=== PATIENT | male | born 1950 | race Two or more races ===

== ENCOUNTER 2020-11-13 21:35 | Inpatient (IN) | payer OTHER, MEDICAID ==
[~2020-11-13] VITALS: Ht 154.9 cm; Wt 72.0 kg
[~2020-11-13 21:35] MED LIST: ASPI325T4 PO; ATOR40TA52 PO; CARV6.2551 PO; CHOL20007 PO; CYAN500T25 PO; FAMO-12 PO; SPIR50TA5 PO
[2020-11-13 21:57] LABS: Basophils # (auto) 0.1 10 ^3/uL (0-0.2); Basophils % (auto) 1.2 % (0.0-2.0); Eosinophils # (auto) 0.1 10 ^3/uL (0-0.8); Eosinophils % (auto) 0.9 % (0.0-7.0); Hematocrit 44.8 % (41.0-53.0); Hemoglobin 14.9 g/dL (13.5-17.5); Lymphocytes # (auto) 1.7 10 ^3/uL (0.4-5.4); Lymphocytes % (auto) 15.9 % (10.0-50.0); Mean Corpuscular Hgb Conc. 33.4 g/dL (32.0-36.0); Monocytes # (auto) 0.9 10 ^3/uL (0-1.3); Monocytes % (auto) 8.7 % (0.0-12.0); Neutrophils # (auto) 7.8 10 ^3/uL (1.6-8.6); Neutrophils % (auto) 73.3 % (37.0-80.0); Red Blood Cells 5.33 10^6/uL (4.5-5.90); Red Cell Distribution Width 14.5 % (11.8-14.3); White Blood Cell 10.6 10^3/uL (4.4-10.8)
[2020-11-13 22:20] LABS: Albumin 3.7 g/dL (3.4-5.0); Anion Gap 5 (5-15); Blood Urea Nitrogen 14 mg/dL (7-18); Carbon Dioxide 21 mmol/L (21-32); Chloride 113 mmol/L (98-107); Glucose 149 mg/dL (74-106); Magnesium 2.7 mg/dL (1.6-2.6); Potassium 4.9 mmol/L (3.5-5.1); Sodium 139 mmol/L (136-145)
[2020-11-13 22:26] LABS: Alanine Aminotransferase 43 U/L (16-61); Alkaline Phosphatase 85 U/L (45-117); Aspartate Aminotransferase 29 U/L (15-37); Bilirubin, Total 0.8 mg/dL (0.2-1.0); GFR African American 96 mL/min; GFR Non-African American 79 mL/min; Total Protein 7.7 g/dL (6.4-8.2)
[2020-11-13 22:38] LABS: INR 1.13 (0.9-1.15); Partial Thromboplastin Time 26.8 sec (23.0-31.2)
[2020-11-14] MEDS ORDERED: NITROGLYCERIN 0.2MG/HR TOPICAL PATCH TD ONE (00:30)
[2020-11-14] MEDS ORDERED: ASPirin 81 mg TAB PO ONE (00:30)
[2020-11-14] MEDS ORDERED: DEXTROSE (50%) 50ML SYRG IV PRN (09:30)
[2020-11-14] MEDS ORDERED: hydrALAZINE HCL 20 MG/ML VL IV PRN (09:30)
[2020-11-14] MEDS ORDERED: MORPHINE SULF INJ 2 MG/ML SYRINGE 1ML IV PRN ×2 (09:30)
[2020-11-14] MEDS ORDERED: HYDROcodone-ACET 5/325MG TAB PO PRN (09:30)
[2020-11-14] MEDS ORDERED: ACETAMINOPHEN 500 MG TAB PO PRN (09:30)
[2020-11-14] MEDS ORDERED: NITROGLYCERIN 0.4 MG SL TAB SL PRN (09:30)
[2020-11-14] MEDS ORDERED: ONDANSETRON HCL 4 MG/2 ML VIAL IV PRN (09:30)
[2020-11-14] MEDS ORDERED: FUROSEMIDE 20 MG/2 ML VIAL IV SCH (10:00)
[2020-11-14] MEDS: InsuLIN REG 1unit/0.01ml Soln (100units/ml) SC SCH ×3 (11:09→22:51)
[2020-11-14] MEDS: ACCU-CHEK COMFORT CURVE STRIP VI SCH ×3 (11:10→22:49)
[2020-11-14] MEDS: LISINOPRIL 10 MG TAB PO SCH (11:20)
[2020-11-14] MEDS: ASPirin-EC 81 mg tab PO SCH (11:20)
[2020-11-14] MEDS: CARVEDILOL 3.125 MG TAB PO SCH (11:20)
[2020-11-14] MEDS: SPIRONOLACTONE 25 MG TAB PO SCH (11:21)
[2020-11-14 22:00] VITALS: BP 100/55
[2020-11-14] MEDS: ATORVASTATIN 20 MG TAB PO SCH (22:50)
[2020-11-14] MEDS ORDERED: ATEN-60 PO (23:09)
[2020-11-14] MEDS ORDERED: POTA10TA51 PO (23:09)
[2020-11-14] MEDS ORDERED: CHOL100055 PO (23:09)
[2020-11-14] MEDS ORDERED: FURO1TAB33 PO (23:09)
[2020-11-14] MEDS ORDERED: METF-370 PO (23:09)
[2020-11-15 05:14] VITALS: BP 107/61
[2020-11-15 05:50] LABS: Basophils # (auto) 0.1 10 ^3/uL (0-0.2); Basophils % (auto) 0.5 % (0.0-2.0); Eosinophils # (auto) 0.2 10 ^3/uL (0-0.8); Eosinophils % (auto) 1.5 % (0.0-7.0); Hematocrit 39.6 % (41.0-53.0); Hemoglobin 13.6 g/dL (13.5-17.5); Lymphocytes # (auto) 1.2 10 ^3/uL (0.4-5.4); Lymphocytes % (auto) 12.2 % (10.0-50.0); Mean Corpuscular Hemoglobin 28.6 pg (28.0-32.0); Mean Corpuscular Hgb Conc. 34.4 g/dL (32.0-36.0); Mean Corpuscular Volume 83.1 fL (80.0-100.0); Monocytes # (auto) 0.8 10 ^3/uL (0-1.3); Neutrophils # (auto) 7.9 10 ^3/uL (1.6-8.6); Neutrophils % (auto) 77.8 % (37.0-80.0); Nucleated Red Blood Cells % 0.1 %; Red Blood Cells 4.77 10^6/uL (4.5-5.90); Red Cell Distribution Width 14.3 % (11.8-14.3); White Blood Cell 10.2 10^3/uL (4.4-10.8)
[2020-11-15 06:07] LABS: INR 1.15 (0.9-1.15); Partial Thromboplastin Time 26.4 sec (23.0-31.2)
[2020-11-15 06:11] LABS: BUN/Creatinine Ratio 23.5; Calcium 9.6 mg/dL (8.5-10.1); Potassium 3.6 mmol/L (3.5-5.1)
[2020-11-15] MEDS: ACCU-CHEK COMFORT CURVE STRIP VI SCH ×4 (06:49→21:10)
[2020-11-15] MEDS: InsuLIN REG 1unit/0.01ml Soln (100units/ml) SC SCH ×4 (06:49→21:13)
[2020-11-15 08:00] VITALS: BP 108/65
[2020-11-15 09:00] VITALS: BP 108/65
[2020-11-15] MEDS ORDERED: ADENOSINE 66 MG in GIVE UN-DILUTED 0 ML IV ONE (09:00)
[2020-11-15] MEDS ORDERED: PATIENTS OWN MEDICATION (Spironolactone 1 TAB) PO SCH (10:00)
[2020-11-15] MEDS: CARVEDILOL 3.125 MG TAB PO SCH (10:00)
[2020-11-15] MEDS ORDERED: PATIENTS OWN MEDICATION (Carvedilol 6.25 MG) PO SCH (10:00)
[2020-11-15] MEDS: FUROSEMIDE 20 MG TAB PO SCH (10:07)
[2020-11-15] MEDS: LISINOPRIL 10 MG TAB PO SCH (10:07)
[2020-11-15] MEDS: SPIRONOLACTONE 25 MG TAB PO SCH (10:07)
[2020-11-15] MEDS: ASPirin-EC 81 mg tab PO SCH (10:07)
[2020-11-15 13:00] VITALS: BP 107/70
[2020-11-15 17:01] VITALS: BP 94/59
[2020-11-15] MEDS: ATORVASTATIN 20 MG TAB PO SCH (21:11)
[2020-11-15 21:35] VITALS: BP 103/67
[2020-11-16 04:33] VITALS: BP 109/73
[2020-11-16] MEDS: ACCU-CHEK COMFORT CURVE STRIP VI SCH ×2 (06:49→11:50)
[2020-11-16] MEDS: InsuLIN REG 1unit/0.01ml Soln (100units/ml) SC SCH ×2 (06:49→11:30)
[2020-11-16 08:52] VITALS: BP 102/71
[2020-11-16] MEDS: CARVEDILOL 3.125 MG TAB PO SCH (09:53)
[2020-11-16] MEDS: FUROSEMIDE 20 MG TAB PO SCH (09:53)
[2020-11-16] MEDS: LISINOPRIL 10 MG TAB PO SCH (09:53)
[2020-11-16] MEDS: ASPirin-EC 81 mg tab PO SCH (09:53)
[2020-11-16] MEDS: SPIRONOLACTONE 25 MG TAB PO SCH (09:54)
[2020-11-16 13:00] VITALS: BP 105/67
[2020-11-16 14:53] VITALS: BP 105/67
== END 2020-11-16 16:29 | disposition home or self-care (01) | DRG 293 ==
LOC: ER 21:38 → TELE 11-14 09:28 → TELE-CENTR 11-14 22:25
PROVIDERS: ADMIT Nurse Practitioner Acute Care; ATTEND Internal Medicine
DX: I11.0 Hypertensive heart disease with heart failure (principal); I50.43 Acute on chronic combined systolic (congestive) and diastolic (congestive) heart failure; I25.5 Ischemic cardiomyopathy; E66.9 Obesity, unspecified; E11.9 Type 2 diabetes mellitus without complications; E78.5 Hyperlipidemia, unspecified; I25.2 Old myocardial infarction; Z79.82 Long term (current) use of aspirin; Z95.810 Presence of automatic (implantable) cardiac defibrillator; Z20.822 Contact with and (suspected) exposure to COVID-19
CPT/HCPCS: 36415; 71045; 78452; 80048; 80053; 82962; 83735; 83880; 84443; 84484; 85025; 85610; 85730; 86141; 87426; 93005; 93017; 93306; G0378; J0153; J1815

== ENCOUNTER 2020-12-21 05:54 | Inpatient (IN) | payer OTHER, MEDICAID ==
[~2020-12-21] VITALS: Ht 154.9 cm; Wt 75.1 kg
[~2020-12-21 05:54] MED LIST changes: +ATEN-60 PO; -CARV6.2551 PO; +CHOL100055 PO; -CHOL20007 PO; +FURO1TAB33 PO; +METF-370 PO; +POTA10TA51 PO
[2020-12-21 07:52] LABS: Basophils # (auto) 0.1 10 ^3/uL (0-0.2); Eosinophils # (auto) 0.1 10 ^3/uL (0-0.8); Hematocrit 46.2 % (41.0-53.0); Hemoglobin 15.7 g/dL (13.5-17.5); Lymphocytes # (auto) 1.3 10 ^3/uL (0.4-5.4); Lymphocytes % (auto) 14.1 % (10.0-50.0); Mean Corpuscular Hemoglobin 28.4 pg (28.0-32.0); Mean Corpuscular Volume 83.7 fL (80.0-100.0); Monocytes # (auto) 0.8 10 ^3/uL (0-1.3); Monocytes % (auto) 8.6 % (0.0-12.0); Neutrophils # (auto) 6.9 10 ^3/uL (1.6-8.6); Neutrophils % (auto) 75.3 % (37.0-80.0); Nucleated Red Blood Cells % 0.1 %; Red Blood Cells 5.53 10^6/uL (4.5-5.90); Red Cell Distribution Width 14.3 % (11.8-14.3); White Blood Cell 9.1 10^3/uL (4.4-10.8)
[2020-12-21 08:06] LABS: Albumin 3.8 g/dL (3.4-5.0); Anion Gap 2 (5-15); Blood Urea Nitrogen 18 mg/dL (7-18); Calcium 9.9 mg/dL (8.5-10.1); Carbon Dioxide 24 mmol/L (21-32); Chloride 110 mmol/L (98-107); Glucose 140 mg/dL (74-106); Potassium 5.5 mmol/L (3.5-5.1); Sodium 136 mmol/L (136-145)
[2020-12-21 08:12] LABS: Alanine Aminotransferase 28 U/L (16-61); Alkaline Phosphatase 75 U/L (45-117); Aspartate Aminotransferase 17 U/L (15-37); Bilirubin, Total 0.4 mg/dL (0.2-1.0); GFR African American 87 mL/min; GFR Non-African American 72 mL/min
[2020-12-21] MEDS ORDERED: ALBUTEROL SULF 2.5 MG/0.5ML(0.5%) NEB SOLN NEB ONE (08:30)
[2020-12-21] MEDS ORDERED: SODIUM ZIRCONIUM CYCL 10 GM PAK PO ONE (08:30)
[2020-12-21] MEDS ORDERED: CALCIUM GLUC 1,000mg/50ml-NS 50 ML IV ONE (08:30)
[2020-12-21] MEDS ORDERED: ASPirin 81 mg TAB PO ONE (08:30)
[2020-12-21] MEDS ORDERED: DEXTROSE (50%) 50ML SYRG IV ONE (08:30)
[2020-12-21] MEDS ORDERED: FUROSEMIDE 20 MG/2 ML VIAL IV ONE (08:30)
[2020-12-21] MEDS ORDERED: InsuLIN REG 1unit/0.01ml Soln (100units/ml) IV ONE (08:30)
[2020-12-21] MEDS ORDERED: MORPHINE SULFATE INJECTION 2 MG/ML SYRG IV PRN ×2 (08:45→11:15)
[2020-12-21] MEDS ORDERED: NITROGLYCERIN 0.4 MG SL TAB SL PRN (08:45)
[2020-12-21 08:52] LABS: BUN/Creatinine Ratio 16.7
[2020-12-21] MEDS ORDERED: ACETAMINOPHEN 500 MG TAB PO PRN (11:15)
[2020-12-21] MEDS ORDERED: PROMETHAZINE HCL 25 MG/ML 1ML IV PRN (11:15)
[2020-12-21] MEDS ORDERED: TEMAZEPAM 15 MG CAP PO PRN (11:15)
[2020-12-21] MEDS ORDERED: LACTULOSE 20Gm/30ML SOLN PO PRN (11:15)
[2020-12-21] MEDS ORDERED: DEXTROSE (50%) 50ML SYRG IV PRN (11:15)
[2020-12-21 11:55] LABS: BUN/Creatinine Ratio 18.6; Calcium 9.9 mg/dL (8.5-10.1); Potassium 4.2 mmol/L (3.5-5.1)
[2020-12-21] MEDS: InsuLIN REG 1unit/0.01ml Soln (100units/ml) SC SCH ×3 (12:03→23:01)
[2020-12-21] MEDS: ACCU-CHEK COMFORT CURVE STRIP VI SCH ×3 (12:03→22:58)
[2020-12-21] MEDS: SODIUM CHLOR 0.9% PF (SALINE LOCK) 10ML VIAL/SYR IV SCH ×4 (13:42→22:58)
[2020-12-21 17:46] LABS: Alcohol, Urine < 3.0 mg/dL (0-10); Amphetamine Screen, Urine NEGATIVE (NEGATIVE); Barbiturate Scree,Urine NEGATIVE (NEGATIVE); Benzodiazephine Screen, Urine NEGATIVE (NEGATIVE); Cannabinoid Screen, Urine NEGATIVE (NEGATIVE); Cocaine Screen, Urine NEGATIVE (NEGATIVE); Opiate Scree,Urine NEGATIVE (NEGATIVE); Phencyclidine Screen, Urine NEGATIVE (NEGATIVE)
[2020-12-21 20:09] VITALS: BP 112/72
[2020-12-21 22:00] VITALS: BP 112/72
[2020-12-21] MEDS: CARVEDILOL 3.125 MG TAB PO SCH (22:59)
[2020-12-21] MEDS: ATORVASTATIN 20 MG TAB PO SCH (23:00)
[2020-12-21] MEDS ORDERED: SPIR25TA8 PO (23:28)
[2020-12-21] MEDS ORDERED: LOSA-69 PO (23:28)
[2020-12-21] MEDS ORDERED: FURO40TA4 PO (23:28)
[2020-12-22 03:00] VITALS: BP 112/72
[2020-12-22 05:00] VITALS: BP 104/77
[2020-12-22] MEDS: SODIUM CHLOR 0.9% PF (SALINE LOCK) 10ML VIAL/SYR IV SCH ×6 (06:00→21:57)
[2020-12-22 06:21] LABS: Basophils # (auto) 0.1 10 ^3/uL (0-0.2); Basophils % (auto) 1.1 % (0.0-2.0); Eosinophils # (auto) 0.1 10 ^3/uL (0-0.8); Hematocrit 50.4 % (41.0-53.0); Hemoglobin 16.9 g/dL (13.5-17.5); Lymphocytes # (auto) 1.5 10 ^3/uL (0.4-5.4); Lymphocytes % (auto) 13.7 % (10.0-50.0); Mean Corpuscular Hemoglobin 28.2 pg (28.0-32.0); Mean Corpuscular Hgb Conc. 33.5 g/dL (32.0-36.0); Monocytes # (auto) 0.8 10 ^3/uL (0-1.3); Monocytes % (auto) 7.3 % (0.0-12.0); Neutrophils # (auto) 8.2 10 ^3/uL (1.6-8.6); Neutrophils % (auto) 76.9 % (37.0-80.0); Nucleated Red Blood Cells % 0.2 %; Red Blood Cells 5.99 10^6/uL (4.5-5.90); Red Cell Distribution Width 14.3 % (11.8-14.3); White Blood Cell 10.6 10^3/uL (4.4-10.8)
[2020-12-22] MEDS: ACCU-CHEK COMFORT CURVE STRIP VI SCH ×4 (06:34→21:54)
[2020-12-22 06:40] LABS: Albumin 3.6 g/dL (3.4-5.0); BUN/Creatinine Ratio 17.8; Calcium 10.1 mg/dL (8.5-10.1); Potassium 4.4 mmol/L (3.5-5.1)
[2020-12-22 06:43] LABS: Bilirubin, Total 0.9 mg/dL (0.2-1.0); Total Protein 7.9 g/dL (6.4-8.2)
[2020-12-22] MEDS: InsuLIN REG 1unit/0.01ml Soln (100units/ml) SC SCH ×4 (06:44→21:57)
[2020-12-22 09:00] VITALS: BP 116/83
[2020-12-22] MEDS: FUROSEMIDE 40 MG/4 ML VIAL IV SCH (09:50)
[2020-12-22] MEDS: ASPirin 81 mg TAB PO SCH (09:50)
[2020-12-22] MEDS: ENOXAPARIN SOD 40 MG/0.4 ML SYRINGE SC SCH (09:50)
[2020-12-22] MEDS: CARVEDILOL 3.125 MG TAB PO SCH ×2 (09:50→21:57)
[2020-12-22] MEDS ORDERED: NITROGLYCERIN 0.2MG/HR TOPICAL PATCH TD SCH (10:00)
[2020-12-22 13:00] VITALS: BP 110/80
[2020-12-22 17:08] VITALS: BP 104/73
[2020-12-22] MEDS: traMADol HCL 50 MG TAB PO PRN (20:56)
[2020-12-22] MEDS: ATORVASTATIN 20 MG TAB PO SCH (21:58)
[2020-12-22 22:00] VITALS: BP 122/68
[2020-12-23 05:00] VITALS: BP 115/85
[2020-12-23 05:33] LABS: Magnesium 2.2 mg/dL (1.6-2.6)
[2020-12-23 05:35] LABS: Bilirubin, Total 0.8 mg/dL (0.2-1.0)
[2020-12-23] MEDS: SODIUM CHLOR 0.9% PF (SALINE LOCK) 10ML VIAL/SYR IV SCH ×6 (06:00→22:11)
[2020-12-23] MEDS: ACCU-CHEK COMFORT CURVE STRIP VI SCH ×2 (06:16→11:30)
[2020-12-23] MEDS: InsuLIN REG 1unit/0.01ml Soln (100units/ml) SC SCH ×2 (06:19→11:30)
[2020-12-23 08:30] VITALS: BP 113/76
[2020-12-23] MEDS: LOSARTAN POTASSIUM 25 MG TAB PO SCH (10:30)
[2020-12-23] MEDS: CARVEDILOL 3.125 MG TAB PO SCH ×2 (10:30→22:14)
[2020-12-23] MEDS: ENOXAPARIN SOD 40 MG/0.4 ML SYRINGE SC SCH (12:04)
[2020-12-23] MEDS: ASPirin 81 mg TAB PO SCH (12:04)
[2020-12-23] MEDS: FUROSEMIDE 40 MG/4 ML VIAL IV SCH (12:05)
[2020-12-23 15:30] VITALS: BP 111/70
[2020-12-23] MEDS ORDERED: PANTOPRAZOLE 40 MG TAB PO ONE (17:15)
[2020-12-23 17:20] LABS: Albumin 3.4 g/dL (3.4-5.0); Calcium 10.5 mg/dL (8.5-10.1); Potassium 4.2 mmol/L (3.5-5.1)
[2020-12-23 17:21] LABS: Total Protein 7.5 g/dL (6.4-8.2)
[2020-12-23] MEDS: traMADol HCL 50 MG TAB PO PRN (18:55)
[2020-12-23] MEDS ORDERED: AZITHROMYCIN 250 MG TAB PO ONE (19:45)
[2020-12-23 22:00] VITALS: BP 102/56
[2020-12-23] MEDS: ATORVASTATIN 20 MG TAB PO SCH (22:14)
[2020-12-24 05:00] VITALS: BP 117/75
[2020-12-24] MEDS: SODIUM CHLOR 0.9% PF (SALINE LOCK) 10ML VIAL/SYR IV SCH ×6 (05:17→21:52)
[2020-12-24 06:07] LABS: Basophils # (auto) 0.1 10 ^3/uL (0-0.2); Eosinophils # (auto) 0.2 10 ^3/uL (0-0.8); Eosinophils % (auto) 2.6 % (0.0-7.0); Hematocrit 47.9 % (41.0-53.0); Hemoglobin 15.9 g/dL (13.5-17.5); Lymphocytes # (auto) 1.8 10 ^3/uL (0.4-5.4); Lymphocytes % (auto) 23.3 % (10.0-50.0); Mean Corpuscular Hemoglobin 27.6 pg (28.0-32.0); Mean Corpuscular Hgb Conc. 33.2 g/dL (32.0-36.0); Mean Corpuscular Volume 83.3 fL (80.0-100.0); Monocytes # (auto) 0.8 10 ^3/uL (0-1.3); Monocytes % (auto) 10.4 % (0.0-12.0); Neutrophils # (auto) 4.8 10 ^3/uL (1.6-8.6); Neutrophils % (auto) 62.7 % (37.0-80.0); Nucleated Red Blood Cells % 0.2 %; Red Blood Cells 5.75 10^6/uL (4.5-5.90); White Blood Cell 7.6 10^3/uL (4.4-10.8)
[2020-12-24 09:00] VITALS: BP 110/69
[2020-12-24] MEDS: ASPirin 81 mg TAB PO SCH (09:31)
[2020-12-24] MEDS: PANTOPRAZOLE 40 MG TAB PO SCH (09:33)
[2020-12-24] MEDS: CARVEDILOL 3.125 MG TAB PO SCH ×2 (09:34→21:52)
[2020-12-24] MEDS: LOSARTAN POTASSIUM 25 MG TAB PO SCH (09:45)
[2020-12-24] MEDS: AZITHROMYCIN 250 MG TAB PO SCH (09:46)
[2020-12-24] MEDS: ENOXAPARIN SOD 40 MG/0.4 ML SYRINGE SC SCH (09:48)
[2020-12-24] MEDS: FUROSEMIDE 40 MG/4 ML VIAL IV SCH (09:49)
[2020-12-24 13:00] VITALS: BP 90/65
[2020-12-24 17:00] VITALS: BP 94/59
[2020-12-24] MEDS: traMADol HCL 50 MG TAB PO PRN (20:04)
[2020-12-24] MEDS: ATORVASTATIN 20 MG TAB PO SCH (21:52)
[2020-12-24 22:00] VITALS: BP 109/74
[2020-12-25 05:00] VITALS: BP 91/64
[2020-12-25] MEDS: SODIUM CHLOR 0.9% PF (SALINE LOCK) 10ML VIAL/SYR IV SCH ×2 (05:52→05:53)
[2020-12-25 09:00] VITALS: BP 115/64
[2020-12-25] MEDS: ASPirin 81 mg TAB PO SCH (09:32)
[2020-12-25] MEDS: FUROSEMIDE 40 MG/4 ML VIAL IV SCH (09:32)
[2020-12-25] MEDS: AZITHROMYCIN 250 MG TAB PO SCH (09:33)
[2020-12-25] MEDS: PANTOPRAZOLE 40 MG TAB PO SCH (09:33)
[2020-12-25] MEDS: LOSARTAN POTASSIUM 25 MG TAB PO SCH (09:34)
[2020-12-25] MEDS: ENOXAPARIN SOD 40 MG/0.4 ML SYRINGE SC SCH (09:34)
[2020-12-25] MEDS: CARVEDILOL 3.125 MG TAB PO SCH (09:37)
[2020-12-25 13:00] VITALS: BP 93/62
[2020-12-25 15:10] VITALS: BP 103/71
== END 2020-12-25 16:00 | disposition home or self-care (01) | DRG 293 ==
LOC: ER 05:54 → TELE 08:36 → TELE-WESTW 20:09
PROVIDERS: ADMIT Internal Medicine; ATTEND Internal Medicine Pulmonary Disease
DX: I11.0 Hypertensive heart disease with heart failure (principal); I50.23 Acute on chronic systolic (congestive) heart failure; E87.5 Hyperkalemia; E87.6 Hypokalemia; I25.10 Atherosclerotic heart disease of native coronary artery without angina pectoris; E11.9 Type 2 diabetes mellitus without complications; E66.9 Obesity, unspecified; I25.5 Ischemic cardiomyopathy; Z20.822 Contact with and (suspected) exposure to COVID-19; J32.1 Chronic frontal sinusitis; E78.5 Hyperlipidemia, unspecified; Z68.31 Body mass index [BMI] 31.0-31.9, adult; I25.2 Old myocardial infarction; Z82.49 Family history of ischemic heart disease and other diseases of the circulatory system; Z83.3 Family history of diabetes mellitus; Z95.810 Presence of automatic (implantable) cardiac defibrillator
CPT/HCPCS: 36415; 70220; 71045; 80048; 80053; 80061; 80307; 82550; 82962; 83036; 83735; 83880; 84132; 84443; 84484; 85025; 85379; 85652; 86141; 87081; 87426; 93005; 94640; 96365; 96375; 99291; G0378; J1815

== ENCOUNTER 2021-03-03 00:48 | Inpatient (IN) | payer OTHER, MEDICAID ==
[~2021-03-03] VITALS: Ht 154.9 cm; Wt 74.4 kg
[~2021-03-03 00:48] MED LIST changes: -FURO1TAB33 PO; +FURO40TA4 PO; +LOSA-69 PO; +SPIR25TA8 PO; -SPIR50TA5 PO
[2021-03-03 01:52] LABS: Hematocrit 44.5 % (41.0-53.0); Hemoglobin 15.2 g/dL (13.5-17.5); Mean Corpuscular Hemoglobin 28.7 pg (28.0-32.0); Mean Corpuscular Hgb Conc. 34.1 g/dL (32.0-36.0); Mean Corpuscular Volume 84.3 fL (80.0-100.0); Red Blood Cells 5.27 10^6/uL (4.5-5.90); Red Cell Distribution Width 14.4 % (11.8-14.3); White Blood Cell 9.4 10^3/uL (4.4-10.8)
[2021-03-03 01:57] LABS: Basophils % (manual) 0 (0.0-2.0); Blast Cells 0; Eosinophils % (manual) 0 (0-7); Metamyelocytes % 0; Myelocytes % 0; Promyelocytes % 0; Reactive Lymphocytes 0
[2021-03-03 02:10] LABS: Albumin 3.6 g/dL (3.4-5.0); BUN/Creatinine Ratio 18.3; Calcium 9.6 mg/dL (8.5-10.1); Magnesium 2.4 mg/dL (1.6-2.6); Potassium 3.8 mmol/L (3.5-5.1)
[2021-03-03 02:15] LABS: Bilirubin, Total 0.8 mg/dL (0.2-1.0); Total Protein 7.4 g/dL (6.4-8.2)
[2021-03-03 02:30] LABS: Band Neutrophils % (manual) 2; Lymphocytes % (manual) 12 (10.0-50.0); Monocytes % (manual) 5 (0-12)
[2021-03-03] MEDS ORDERED: ASPirin 325 MG TAB PO ONE (04:30)
[2021-03-03 04:53] LABS: Urine Bacteria NONE SEEN /hpf (None Seen); Urine Blood Negative /uL (Negative); Urine Hyaline Cast MANY /lpf (0 - 2); Urine Mucus FEW (None Seen); Urine WBC 1 /hpf (0 - 3)
[2021-03-03] MEDS ORDERED: DEXTROSE (50%) 50ML SYRG IV PRN (06:30)
[2021-03-03] MEDS ORDERED: TEMAZEPAM 15 MG CAP PO PRN (06:30)
[2021-03-03] MEDS ORDERED: NITROGLYCERIN 0.4 MG SL TAB SL PRN (06:30)
[2021-03-03] MEDS ORDERED: ACETAMINOPHEN 325 MG TAB PO PRN (06:30)
[2021-03-03] MEDS ORDERED: MORPHINE SULFATE INJECTION 2 MG/ML SYRG IV PRN (06:30)
[2021-03-03] MEDS: InsuLIN REG 1unit/0.01ml Soln (100units/ml) SC SCH ×2 (07:49→11:49)
[2021-03-03] MEDS: ACCU-CHEK COMFORT CURVE STRIP VI SCH ×2 (07:49→11:45)
[2021-03-03] MEDS ORDERED: PANTOPRAZOLE 40 MG TAB PO SCH (10:00)
[2021-03-03] MEDS ORDERED: SPIRONOLACTONE 25 MG TAB PO SCH (10:00)
[2021-03-03] MEDS ORDERED: FUROSEMIDE 40 MG TAB PO SCH (10:00)
[2021-03-03] MEDS ORDERED: LOSARTAN POTASSIUM 50 MG TAB PO SCH (10:00)
[2021-03-03] MEDS ORDERED: ATENOLOL 25 MG TAB PO SCH (10:00)
[2021-03-03 13:00] VITALS: BP 107/73
[2021-03-03] MEDS ORDERED: ATORVASTATIN 20 MG TAB PO SCH (22:00)
[2021-03-04] MEDS ORDERED: ASPirin 81 mg TAB PO SCH (10:00)
== END 2021-03-04 14:40 | disposition left against medical advice (07) | DRG 291 ==
LOC: ER 00:48 → TELE 06:25
PROVIDERS: ADMIT Nurse Practitioner; ATTEND Nurse Practitioner
DX: I11.0 Hypertensive heart disease with heart failure (principal); I50.23 Acute on chronic systolic (congestive) heart failure; E11.9 Type 2 diabetes mellitus without complications; I20.0 Unstable angina; Z20.822 Contact with and (suspected) exposure to COVID-19; R53.83 Other fatigue; R74.01 Elevation of levels of liver transaminase levels; I25.2 Old myocardial infarction; Z95.0 Presence of cardiac pacemaker; Z91.19 Patient's noncompliance with other medical treatment and regimen
CPT/HCPCS: 36415; 71045; 80053; 81001; 82962; 83735; 83880; 84484; 85007; 85027; 87426; 93005; 96372; G0378

== ENCOUNTER 2021-05-29 18:47 | Emergency (ER) | payer OTHER, MEDICAID ==
[~2021-05-29] VITALS: Ht 149.9 cm; Wt 68.0 kg
[2021-05-29 20:18] LABS: Basophils # (auto) 0.1 10 ^3/uL (0-0.2); Basophils % (auto) 0.8 % (0.0-2.0); Eosinophils # (auto) 0.1 10 ^3/uL (0-0.8); Eosinophils % (auto) 0.6 % (0.0-7.0); Hematocrit 43.6 % (41.0-53.0); Hemoglobin 14.5 g/dL (13.5-17.5); Lymphocytes # (auto) 1.4 10 ^3/uL (0.4-5.4); Lymphocytes % (auto) 15.2 % (10.0-50.0); Mean Corpuscular Hemoglobin 28.9 pg (28.0-32.0); Mean Corpuscular Hgb Conc. 33.1 g/dL (32.0-36.0); Mean Corpuscular Volume 87.1 fL (80.0-100.0); Monocytes # (auto) 0.8 10 ^3/uL (0-1.3); Monocytes % (auto) 8.3 % (0.0-12.0); Neutrophils % (auto) 75.1 % (37.0-80.0); Red Blood Cells 5.01 10^6/uL (4.5-5.90); Red Cell Distribution Width 13.4 % (11.8-14.3); White Blood Cell 9.4 10^3/uL (4.4-10.8)
[2021-05-29 20:27] LABS: Calcium 9.6 mg/dL (8.5-10.1); Potassium 3.8 mmol/L (3.5-5.1)
[2021-05-29 20:43] LABS: BUN/Creatinine Ratio 10.2; Bilirubin, Total 0.9 mg/dL (0.2-1.0); Total Protein 7.6 g/dL (6.4-8.2)
[2021-05-29 21:59] VITALS: BP 113/72
== END 2021-05-29 22:15 | disposition home or self-care (01) ==
LOC: ER 18:47
DX: I11.0 Hypertensive heart disease with heart failure (principal); I50.9 Heart failure, unspecified; I25.2 Old myocardial infarction; E11.9 Type 2 diabetes mellitus without complications; E78.5 Hyperlipidemia, unspecified; Z95.0 Presence of cardiac pacemaker; Z79.82 Long term (current) use of aspirin; Z79.899 Other long term (current) drug therapy
CPT/HCPCS: 36415; 80053; 83880; 84484; 85025; 93005

== ENCOUNTER 2021-07-08 17:35 | Emergency (ER) | payer OTHER, MEDICAID ==
[~2021-07-08] VITALS: Ht 175.3 cm; Wt 77.1 kg
[2021-07-08 19:18] LABS: Basophils # (auto) 0.1 10 ^3/uL (0-0.2); Eosinophils # (auto) 0.2 10 ^3/uL (0-0.8); Eosinophils % (auto) 2.4 % (0.0-7.0); Hematocrit 42.7 % (41.0-53.0); Hemoglobin 14.7 g/dL (13.5-17.5); Lymphocytes # (auto) 1.4 10 ^3/uL (0.4-5.4); Lymphocytes % (auto) 14.9 % (10.0-50.0); Mean Corpuscular Hemoglobin 28.9 pg (28.0-32.0); Mean Corpuscular Hgb Conc. 34.5 g/dL (32.0-36.0); Monocytes # (auto) 0.9 10 ^3/uL (0-1.3); Monocytes % (auto) 9.2 % (0.0-12.0); Neutrophils # (auto) 6.8 10 ^3/uL (1.6-8.6); Neutrophils % (auto) 72.5 % (37.0-80.0); Nucleated Red Blood Cells % 0.2 %; Red Blood Cells 5.08 10^6/uL (4.5-5.90); Red Cell Distribution Width 13.2 % (11.8-14.3); White Blood Cell 9.4 10^3/uL (4.4-10.8)
[2021-07-08 19:40] LABS: Albumin 4.2 g/dL (3.4-5.0); Calcium 10.7 mg/dL (8.5-10.1); Potassium 4.4 mmol/L (3.5-5.1)
[2021-07-08 20:00] LABS: BUN/Creatinine Ratio 18.6; Bilirubin, Total 0.5 mg/dL (0.2-1.0); Total Protein 7.9 g/dL (6.4-8.2)
[2021-07-08 22:57] VITALS: BP 105/71
== END 2021-07-08 22:55 | disposition home or self-care (01) ==
LOC: ER 17:35 → EDBD 17:35 → ER 22:55
DX: R07.89 Other chest pain (principal); I11.0 Hypertensive heart disease with heart failure; I50.9 Heart failure, unspecified; E11.9 Type 2 diabetes mellitus without complications; K21.9 Gastro-esophageal reflux disease without esophagitis; E78.5 Hyperlipidemia, unspecified
CPT/HCPCS: 36415; 80053; 83880; 84484; 85025; 93005

== ENCOUNTER 2022-01-11 18:32 | Inpatient (IN) | payer OTHER, MEDICAID ==
[~2022-01-11] VITALS: Ht 162.6 cm; Wt 76.3 kg
[2022-01-11 20:31] LABS: Basophils # (auto) 0.2 10 ^3/uL (0-0.2); Basophils % (auto) 3.2 % (0.0-2.0); Eosinophils # (auto) 0.4 10 ^3/uL (0-0.8); Eosinophils % (auto) 5.6 % (0.0-7.0); Hematocrit 45.6 % (41.0-53.0); Hemoglobin 15.2 g/dL (13.5-17.5); Lymphocytes # (auto) 1.3 10 ^3/uL (0.4-5.4); Lymphocytes % (auto) 19.1 % (10.0-50.0); Mean Corpuscular Hgb Conc. 33.4 g/dL (32.0-36.0); Mean Corpuscular Volume 83.8 fL (80.0-100.0); Monocytes # (auto) 0.5 10 ^3/uL (0-1.3); Monocytes % (auto) 7.3 % (0.0-12.0); Neutrophils # (auto) 4.5 10 ^3/uL (1.6-8.6); Neutrophils % (auto) 64.8 % (37.0-80.0); Nucleated Red Blood Cells % 0.3 %; Red Blood Cells 5.44 10^6/uL (4.5-5.90); Red Cell Distribution Width 13.7 % (11.8-14.3)
[2022-01-11 20:33] LABS: Albumin 3.9 g/dL (3.4-5.0); Calcium 9.4 mg/dL (8.5-10.1); Potassium 4.3 mmol/L (3.5-5.1)
[2022-01-11 20:36] LABS: BUN/Creatinine Ratio 12.7; Bilirubin, Total 0.6 mg/dL (0.2-1.0); Total Protein 7.4 g/dL (6.4-8.2)
[2022-01-11] MEDS ORDERED: ACETAMINOPHEN 325 MG TAB PO PRN (22:30)
[2022-01-11] MEDS ORDERED: HYDROcodone-ACET 5/325MG TAB PO PRN (22:30)
[2022-01-11] MEDS ORDERED: ONDANSETRON HCL 4 MG/2 ML VIAL IV PRN (22:30)
[2022-01-11] MEDS ORDERED: DOCUSATE SOD 100 MG CAP PO PRN (22:30)
[2022-01-11] MEDS ORDERED: DEXTROSE (50%) 50ML SYRG IV PRN (22:30)
[2022-01-11] MEDS ORDERED: MORPHINE SULFATE INJ 2 MG/ml SYRG IV PRN (23:00)
[2022-01-11] MEDS ORDERED: NITROGLYCERIN 0.4 MG SL TAB SL PRN (23:00)
[2022-01-12 02:20] LABS: Basophils # (auto) 0.1 10 ^3/uL (0-0.2); Basophils % (auto) 0.9 % (0.0-2.0); Eosinophils # (auto) 0.4 10 ^3/uL (0-0.8); Eosinophils % (auto) 5.6 % (0.0-7.0); Hematocrit 42.4 % (41.0-53.0); Hemoglobin 14.5 g/dL (13.5-17.5); Lymphocytes # (auto) 1.7 10 ^3/uL (0.4-5.4); Lymphocytes % (auto) 24.5 % (10.0-50.0); Mean Corpuscular Hemoglobin 28.4 pg (28.0-32.0); Mean Corpuscular Hgb Conc. 34.1 g/dL (32.0-36.0); Mean Corpuscular Volume 83.1 fL (80.0-100.0); Monocytes # (auto) 0.5 10 ^3/uL (0-1.3); Monocytes % (auto) 7.2 % (0.0-12.0); Neutrophils # (auto) 4.4 10 ^3/uL (1.6-8.6); Neutrophils % (auto) 61.8 % (37.0-80.0); Nucleated Red Blood Cells % 0.1 %; Red Blood Cells 5.11 10^6/uL (4.5-5.90); Red Cell Distribution Width 13.8 % (11.8-14.3); White Blood Cell 7.1 10^3/uL (4.4-10.8)
[2022-01-12 03:11] LABS: Albumin 3.7 g/dL (3.4-5.0); BUN/Creatinine Ratio 13.9; Calcium 9.5 mg/dL (8.5-10.1)
[2022-01-12 03:15] LABS: Bilirubin, Total 0.8 mg/dL (0.2-1.0); Total Protein 6.8 g/dL (6.4-8.2)
[2022-01-12] MEDS: SODIUM CHLOR 0.9% PF (SALINE LOCK) 10ML VIAL/SYR IV SCH ×3 (05:28→22:11)
[2022-01-12] MEDS: ACCU-CHEK COMFORT CURVE STRIP VI SCH ×4 (05:59→20:59)
[2022-01-12] MEDS: InsuLIN REG 1unit/0.01ml Soln (100units/ml) SC SCH ×3 (07:00→17:00)
[2022-01-12] MEDS ORDERED: FUROSEMIDE 20 MG/2 ML VIAL IV SCH (10:00)
[2022-01-12] MEDS: ASPirin 81 mg TAB PO SCH (10:41)
[2022-01-12 11:13] LABS: Urine Bacteria NONE SEEN /hpf (None Seen); Urine Blood Negative /uL (Negative); Urine Budding Yeast MANY /hpf (None Seen); Urine Specific Gravity 1.013 (1.001-1.035); Urine WBC 8 /hpf (0 - 3); Urine WBC Clumps PRESENT /hpf (None Seen)
[2022-01-12 15:27] VITALS: BP 120/63
[2022-01-12] MEDS ORDERED: ASPI81TA10 PO (15:29)
[2022-01-12] MEDS ORDERED: CLOP75TA70 PO (15:29)
[2022-01-12] MEDS ORDERED: CARV3.1240 PO (15:29)
[2022-01-12 15:42] VITALS: BP 120/63
[2022-01-12 15:46] VITALS: BP 109/73
[2022-01-12 16:54] VITALS: BP 110/63
[2022-01-12] MEDS: SUCRALFATE 1 GM/10 ML ORAL SUSP PO SCH (17:52)
[2022-01-12] MEDS: PANTOPRAZOLE 40 MG/10 ML VIAL INJ IV SCH (21:15)
[2022-01-12 22:00] VITALS: BP 98/68
[2022-01-12] MEDS ORDERED: InsuLIN REG 1unit/0.01ml Soln (100units/ml) SC SCH (22:00)
[2022-01-12] MEDS ORDERED: ATORVASTATIN 20 MG TAB PO SCH ×2 (22:00)
[2022-01-13 05:00] VITALS: BP 99/64
[2022-01-13] MEDS: SODIUM CHLOR 0.9% PF (SALINE LOCK) 10ML VIAL/SYR IV SCH (06:08)
[2022-01-13] MEDS: SUCRALFATE 1 GM/10 ML ORAL SUSP PO SCH ×2 (06:08→11:47)
[2022-01-13] MEDS: InsuLIN REG 1unit/0.01ml Soln (100units/ml) SC SCH ×2 (06:08→11:30)
[2022-01-13] MEDS: ACCU-CHEK COMFORT CURVE STRIP VI SCH ×2 (06:08→11:47)
[2022-01-13 08:32] VITALS: BP 111/70
[2022-01-13] MEDS: ASPirin 81 mg TAB PO SCH (08:51)
[2022-01-13] MEDS: PANTOPRAZOLE 40 MG/10 ML VIAL INJ IV SCH (08:51)
[2022-01-13] MEDS ORDERED: FUROSEMIDE 40 MG TAB PO SCH (10:00)
[2022-01-13] MEDS ORDERED: POTASSIUM CHL 10 Meq TABLET PO SCH (10:00)
[2022-01-13] MEDS ORDERED: LOSARTAN POTASSIUM 50 MG TAB PO SCH (10:00)
[2022-01-13] MEDS ORDERED: metFORMIN HYDROCHLORIDE 500 MG TAB PO SCH (10:00)
[2022-01-13] MEDS ORDERED: CHOLECALCIFEROL (VITD3) 1,000UNIT=25mCg TAB PO SCH (10:00)
[2022-01-13] MEDS ORDERED: CLOPIDOGREL BISULFATE 75 MG TAB PO SCH (10:00)
[2022-01-13] MEDS ORDERED: PANT40TA2 PO (12:49)
[2022-01-13] MEDS ORDERED: SUCR1SUS10 PO (12:49)
[2022-01-13 13:17] VITALS: BP 107/74
[2022-01-13 14:18] VITALS: BP 111/70
[2022-01-13] MEDS ORDERED: SUCR1TAB PO (16:12)
== END 2022-01-13 15:04 | disposition home or self-care (01) | DRG 392 ==
LOC: EDBD 18:32 → EDUNIT# 18:32 → ER 18:35 → TELE 22:51 → TELE-WESTW 01-12 14:02
PROVIDERS: ADMIT Nurse Practitioner Family; ATTEND Nurse Practitioner Family
DX: K21.9 Gastro-esophageal reflux disease without esophagitis (principal); I42.0 Dilated cardiomyopathy; I20.9 Angina pectoris, unspecified; E11.9 Type 2 diabetes mellitus without complications; E78.5 Hyperlipidemia, unspecified; I11.0 Hypertensive heart disease with heart failure; I50.84 End stage heart failure; Z20.822 Contact with and (suspected) exposure to COVID-19; I25.2 Old myocardial infarction
CPT/HCPCS: 36415; 71045; 80053; 81001; 82962; 83036; 83880; 84484; 85025; 93005; 93306; 96374; C9113; G0378

== ENCOUNTER 2022-12-24 04:39 | Emergency (ER) | payer OTHER, MEDICAID ==
[~2022-12-24] VITALS: Ht 167.6 cm; Wt 77.1 kg
[~2022-12-24 04:39] MED LIST changes: -ASPI325T4 PO; +ASPI81TA10 PO; -ATEN-60 PO; +CARV3.1240 PO; +CLOP75TA70 PO; -FAMO-12 PO; -LOSA-69 PO; +LOSA50TA46 PO; +PANT40TA2 PO; +SUCR1TAB PO
[2022-12-24 05:35] LABS: Basophils # (auto) 0.1 10 ^3/uL (0-0.2); Eosinophils # (auto) 0.5 10 ^3/uL (0-0.8); Eosinophils % (auto) 4.2 % (0.0-7.0); Hematocrit 45.3 % (41.0-53.0); Hemoglobin 14.8 g/dL (13.5-17.5); Lymphocytes # (auto) 1.4 10 ^3/uL (0.4-5.4); Lymphocytes % (auto) 12.1 % (10.0-50.0); Mean Corpuscular Hemoglobin 27.9 pg (28.0-32.0); Mean Corpuscular Hgb Conc. 32.7 g/dL (32.0-36.0); Mean Corpuscular Volume 85.3 fL (80.0-100.0); Monocytes % (auto) 8.8 % (0.0-12.0); Neutrophils # (auto) 8.6 10 ^3/uL (1.6-8.6); Neutrophils % (auto) 73.9 % (37.0-80.0); Nucleated Red Blood Cells % 0.1 %; Red Blood Cells 5.31 10^6/uL (4.5-5.90); Red Cell Distribution Width 13.3 % (11.8-14.3); White Blood Cell 11.6 10^3/uL (4.4-10.8)
[2022-12-24 05:58] LABS: Alanine Aminotransferase 11 U/L (7-40); Albumin 4.5 g/dL (3.2-4.8); Alkaline Phosphatase 82 U/L (46-116); Anion Gap 5.8 (5-15); Aspartate Aminotransferase 9 U/L (13-40); BUN/Creatinine Ratio 10.9 (10.0-20.0); Bilirubin, Total 0.8 mg/dL (0.2-1.0); Blood Urea Nitrogen 12 mg/dL (9-23); Calcium 10.5 mg/dL (8.7-10.4); Carbon Dioxide 22.2 mmol/L (20-30); Chloride 107 mmol/L (98-107); Glucose 159 mg/dL (74-106); Potassium 4.6 mmol/L (3.5-5.1); Sodium 135 mmol/L (136-145); Total Protein 7.6 g/dL (5.7-8.2)
[2022-12-24] MEDS ORDERED: KETOROLAC TROMETH 60MG/2ML VIAL IM ONE (07:30)
[2022-12-24] MEDS ORDERED: SODIUM CHLORIDE 0.9% 1,000 ML IV ONE (08:15)
[2022-12-24] MEDS ORDERED: ONDANSETRON HCL 4 MG/2 ML VIAL IV ONE (08:15)
[2022-12-24 13:28] LABS: Urine Bacteria NONE SEEN /hpf (None Seen); Urine Blood 2+ /uL (Negative); Urine Clarity Clear (Clear); Urine Color Yellow (Yellow); Urine Hyaline Cast MOD /lpf (0 - 2); Urine Mucus FEW (None Seen); Urine Protein, UAD 1+ (Negative); Urine Specific Gravity 1.029 (1.001-1.035); Urine Urobilinogen Normal (Negative); Urine WBC 1 /hpf (0 - 3); Urine pH 5.5 (5.0-8.0)
[2022-12-24 13:53] VITALS: BP 132/89; PULSE 74; RESP 18; TEMP 98.2; O2SAT 97
== END 2022-12-24 13:56 | disposition home or self-care (01) ==
LOC: EDBD 04:39 → ER 04:39
DX: N20.0 Calculus of kidney (principal); I11.0 Hypertensive heart disease with heart failure; I50.9 Heart failure, unspecified; E11.9 Type 2 diabetes mellitus without complications; K21.9 Gastro-esophageal reflux disease without esophagitis; E78.5 Hyperlipidemia, unspecified; I25.2 Old myocardial infarction
CPT/HCPCS: 36415; 74176; 80053; 81001; 83690; 85025; 93005; 96361; 96372; 96374; 99285; J1885; J2405; J7030